=== PATIENT | male | born 1960 | race Hispanic/Latino ===

== ENCOUNTER 2019-02-01 12:28 | Observation (INO) | payer SELFPAY ==
--- NOTE | 2019-02-01 14:17 | RAD REPORT ---
EXAM DESCRIPTION: CT - Abdomen Pelvis Wo Contrast - 02/01/2019 2:01 pm CLINICAL HISTORY: Abdominal pain COMPARISON: None TECHNIQUE: Computed axial tomography of the abdomen and pelvis was obtained. IV and oral contrast we re not requested. All CT scans are performed using dose optimization technique as appropriate and may include automated exposure control or mA/KV adjustment according to patient size. FINDINGS: The evaluation of solid organs, vessels and bowel is limited secondary to the lack of con trast administration. The liver, spleen, pancreas, right adrenal and left kidney appear grossly normal. 1 millimeter calculus right kidney. No hydronephrosis. 12 millimeter left adrenal nodule The appendix is normal. Soft tissue measuring 6 centimeters is present within the distal sigmoid colon. Minimal adjacent stra nding Mild enlargement of the prostate gland IMPRESSION: Soft tissue measuring 6 centimeters within the sigmoid colon may represent a mass or unu sual appearing stool. Direct visualization recommended. Minimal stranding adjacent to the sigmoid col on indicative of mild inflammation. 12 millimeter left adrenal nodule usually representing an adenoma. This could be confirmed with MRI
[2019-02-01 14:22] LABS: Absolute Lymphocytes (CBC) 1.6 K/uL (0.7-4.9); Basophils % 0.3 % (0-1.3); Hematocrit 44.6 % (39.6-49.0); Lymphocytes % 12.3 % (15.3-44.8); RBC Red Blood Cell Count 4.76 M/uL (4.33-5.43)
[2019-02-01] MEDS ORDERED: metroNIDAZOLE 500 MG TABLET ONE (14:33)
[2019-02-01] MEDS ORDERED: CIPROFLOXACIN HCL 500 MG TAB ONE (14:34)
[2019-02-01 14:42] LABS: Albumin 4.3 g/dL (3.4-5.0); Bilirubin Direct 0.2 mg/dL (0-0.2); Bilirubin Total 0.7 mg/dL (0.2-1.0); Potassium 4.4 mmol/L (3.5-5.1); Protein, Total 9.2 g/dL (6.4-8.2)
--- NOTE | 2019-02-01 14:45 | ER ---
Nurse's Notes [facility] Name: Andrés Webb Age: 58 yrs Sex: Male : 1960 Arrival Date: 02/01/2019 Time: 12:34 Bed 18 Private MD: Diagnosis: Colitis;Acute kidney failure Presentation: 02/01 13:00 Presenting complaint: Patient states: Has been having back pain for approx 3 days, had ph blood work done and kidney function abnormal, reports pain in mid back area, N/V and fever. Transition of care: patient was not received from another setting of care. Onset of symptoms was February 01, 2019. Care prior to arrival: None. 13:00 Method Of Arrival: Ambulatory ph 13:00 Acuity: ADONAY 3 ph 18:05 Risk Assessment: Do you want to hurt yourself or someone else? Patient reports no bp desire to harm self or others. Initial Sepsis Screen: Does the patient meet any 2 criteria? No. Patient's initial sepsis screen is negative. Does the patient have a suspected source of infection? No. Patient's initial sepsis screen is negative. Triage Assessment: 13:00 General: Appears in no apparent distress. comfortable, Behavior is calm, cooperative, bp appropriate for age. Pain: Complains of pain in back. EENT: No deficits noted. Neuro: No deficits noted. Cardiovascular: No deficits noted. Respiratory: No deficits noted. GI: No signs and/or symptoms were reported involving the gastrointestinal system. : Reports pain in bilateral flank(s). Derm: No deficits noted. Musculoskeletal: No deficits noted. Historical: - Allergies: 13:04 No Known Allergies; ph - PMHx: 13:04 Diabetes - NIDDM; Hyperlipidemia; Hypertension; ph - PSHx: 13:04 Cholecystectomy; wrist sx; ph - Immunization history:: Adult Immunizations up to date. - Social history:: Smoking status: Patient/guardian denies using tobacco. - Ebola Screening: : No symptoms or risks identified at this time. Screenin:18 Abuse screen: Denies threats or abuse. Denies injuries from another. Nutritional bp screening: No deficits noted. Tuberculosis screening: No symptoms or risk factors identified. Fall Risk None identified. Assessment: 13:17 General: SEE TRIAGE NOTE. bp 13:58 Reassessment: PT TO CT. bp 14:54 Reassessment: ADMIT IN PROCESS FOR ARF AND COLITIS. bp 17:00 Reassessment: ADMIT IN PROCESS, NO BED AVAILABLE. bp 18:00 Reassessment: ATTEMPT TO CALL REPORT, NURSE UNAVAILABLE 2/2 RAPID RESPONSE. bp 18:18 Reassessment: PER HOUSE SUP, ADMIT ON HOLD FOR SHIFT CHANGE. bp 19:15 General: Appears in no apparent distress. comfortable, Behavior is calm, cooperative, rr5 appropriate for age, Reports fever for. 19:15 Pain: Complains of pain in back Pain does not radiate. Pain currently is 4 out of 10 on rr5 a pain scale. Quality of pain is described as aching, Pain began gradually, Is intermittent. Neuro: Level of Consciousness is awake, alert, obeys commands, Oriented to person, place, time, situation, Appropriate for age. Cardiovascular: Capillary refill < 3 seconds Patient's skin is warm and dry. Respiratory: Airway is patent Respiratory effort is even, unlabored, Respiratory pattern is regular, symmetrical. GI: No signs and/or symptoms were reported involving the gastrointestinal system. Reports nausea, vomiting. : Reports pain flank(s). EENT: No signs and/or symptoms were reported regarding the EENT system. Derm: Skin is intact, Skin temperature is warm. Musculoskeletal: Circulation, motion, and sensation intact. Capillary refill < 3 seconds. Vital Signs: 13:02 BP 107 / 63; Pulse 85; Resp 18; Temp 98.8; Pulse Ox 97% on R/A; Weight 102.06 kg; Pain ph 5/10; 14:54 BP 119 / 70; Pulse 73; Resp 16; Pulse Ox 97% ; bp 17:00 BP 119 / 62; Pulse 66; Resp 16; Pulse Ox 100% ; bp 18:05 BP 118 / 78; Pulse 64; Resp 16; Temp 98.5; Pulse Ox 99% ; bp 19:20 BP 121 / 75; Pulse 71; Resp 17; Temp 98.5; Pulse Ox 99% ; rr5 ED Course: 12:34 Patient arrived in ED. mr 13:02 Triage completed. ph 13:04 Arm band placed on. ph 13:15 Francois Rivera, RN is Primary Nurse. bp 13:18 Patient has correct armband on for positive identification. Bed in low position. Call bp light in reach. Side rails up X2. 13:30 Napoleon Koehler PA is PHCP. jr8 13:30 Jama Lu MD is Attending Physician. jr8 14:05 CT Abd/Pelvis - Without Contrast In Process Unspecified. EDMS 14:11 Initial lab(s) drawn, by me, sent to lab. Inserted saline lock: 22 gauge in right jb1 antecubital area, using aseptic technique. Blood collected. 14:44 Bar Ceballos DO is Hospitalizing Provider. jr8 15:37 Rp Exam Complete US In Process Unspecified. EDMS 18:04 No provider procedures requiring assistance completed. Patient admitted, IV remains in bp place. Administered Medications: 14:36 Drug: Flagyl 500 mg Route: PO; bp 15:46 Follow up: Response: No adverse reaction bp 14:37 Drug: Ciprofloxacin 500 mg Route: PO; bp 15:45 Follow up: Response: No adverse reaction bp 14:45 Drug: NS 0.9% 1000 ml Route: IV; Rate: 1000 ml; Site: right antecubital; bp 16:00 Follow up: IV Status: Completed infusion; IV Intake: 1000ml bp 16:00 Drug: NS 0.9% 1000 ml Route: IV; Rate: 1000 ml; Site: right antecubital; bp 19:48 Follow up: Response: No adverse reaction; IV Status: Completed infusion; IV Intake: rr5 1000ml Intake: 16:00 IV: 1000ml; Total: 1000ml. bp 19:48 IV: 1000ml; Total: 2000ml. rr5 Outcome: 14:45 Decision to Hospitalize by Provider. jr8 19:45 Admitted to Tele accompanied by tech, room 401, with chart, Report called to [facility]UNCION rr5 19:45 Condition: stable 19:45 Instructed on the need for admit. 20:13 Patient left the ED. rr5 Signatures: Dispatcher [employer] EDMS Aundrea April Craft mr Napoleon Koehler PA PA jr8 Zuleika Ochoa RN RN Francois Rivera RN RN Sebastián Hurd, RN RN rr5
--- NOTE | 2019-02-01 14:46 | EDPHYS ---
Physician Documentation [facility] Name: Andrés Webb Age: 58 yrs Sex: Male : 1960 Arrival Date: 02/01/2019 Time: 12:34 Bed 18 Private MD: ED Physician Jama Lu HPI: 02/01 14:36 This 58 yrs old Male presents to ER via Ambulatory with complaints of Abnormal jr8 Lab Results. 14:39 The patient presents with pain that is acute, with no known mechanism of injury. The jr8 symptoms are located in the mid back area. Onset: The symptoms/episode began/occurred gradually, 3 day(s) ago. The pain does not radiate. Associated signs and symptoms: Pertinent positives: nausea. The problem was sustained from unknown cause. Modifying factors: The patient symptoms are alleviated by nothing, the patient symptoms are aggravated by nothing. Severity of symptoms: At their worst the symptoms were moderate, in the emergency department the symptoms are unchanged. The patient has not experienced similar symptoms in the past. The patient has been recently seen by a physician:. Patient stated that he went to PCP to have labs done. Had renal insufficiency noted which he has not had before. Has been having mid back pain for 3 days. On ibuprofen. Came to ED for further evaluation . Historical: - Allergies: 13:04 No Known Allergies; ph - PMHx: 13:04 Diabetes - NIDDM; Hyperlipidemia; Hypertension; ph - PSHx: 13:04 Cholecystectomy; wrist sx; ph - Immunization history:: Adult Immunizations up to date. - Social history:: Smoking status: Patient/guardian denies using tobacco. - Ebola Screening: : No symptoms or risks identified at this time. ROS: 14:43 Eyes: Negative for injury, pain, redness, and discharge, ENT: Negative for injury, jr8 pain, and discharge, Neck: Negative for injury, pain, and swelling, Cardiovascular: Negative for chest pain, palpitations, and edema, Respiratory: Negative for shortness of breath, cough, wheezing, and pleuritic chest pain, Abdomen/GI: Negative for abdominal pain, nausea, vomiting, diarrhea, and constipation, MS/Extremity: Negative for injury and deformity, Skin: Negative for injury, rash, and discoloration, Neuro: Negative for headache, weakness, numbness, tingling, and seizure. 14:43 Back: Positive for pain at rest, Negative for pain with movement, radiated pain. Exam: 14:43 Eyes: Pupils equal round and reactive to light, extra-ocular motions intact. Lids and jr8 lashes normal. Conjunctiva and sclera are non-icteric and not injected. Cornea within normal limits. Periorbital areas with no swelling, redness, or edema. ENT: Nares patent. No nasal discharge, no septal abnormalities noted. Tympanic membranes are normal and external auditory canals are clear. Oropharynx with no redness, swelling, or masses, exudates, or evidence of obstruction, uvula midline. Mucous membranes moist. Neck: Trachea midline, no thyromegaly or masses palpated, and no cervical lymphadenopathy. Supple, full range of motion without nuchal rigidity, or vertebral point tenderness. No Meningismus. Cardiovascular: Regular rate and rhythm with a normal S1 and S2. No gallops, murmurs, or rubs. Normal PMI, no JVD. No pulse deficits. Respiratory: Lungs have equal breath sounds bilaterally, clear to auscultation and percussion. No rales, rhonchi or wheezes noted. No increased work of breathing, no retractions or nasal flaring. Abdomen/GI: Soft, non-tender, with normal bowel sounds. No distension or tympany. No guarding or rebound. No evidence of tenderness throughout. Back: No spinal tenderness. No costovertebral tenderness. Full range of motion. Skin: Warm, dry with normal turgor. Normal color with no rashes, no lesions, and no evidence of cellulitis. MS/ Extremity: Pulses equal, no cyanosis. Neurovascular intact. Full, normal range of motion. Neuro: Awake and alert, GCS 15, oriented to person, place, time, and situation. Cranial nerves II-XII grossly intact. Motor strength 5/5 in all extremities. Sensory grossly intact. Cerebellar exam normal. Normal gait. Vital Signs: 13:02 BP 107 / 63; Pulse 85; Resp 18; Temp 98.8; Pulse Ox 97% on R/A; Weight 102.06 kg; Pain ph 5/10; 14:54 BP 119 / 70; Pulse 73; Resp 16; Pulse Ox 97% ; bp 17:00 BP 119 / 62; Pulse 66; Resp 16; Pulse Ox 100% ; bp 18:05 BP 118 / 78; Pulse 64; Resp 16; Temp 98.5; Pulse Ox 99% ; bp 19:20 BP 121 / 75; Pulse 71; Resp 17; Temp 98.5; Pulse Ox 99% ; rr5 MDM: 13:44 Patient medically screened. jr8 14:43 Data reviewed: vital signs, nurses notes, lab test result(s), radiologic studies, CT jr8 scan, and as a result, I will admit patient. Data interpreted: Pulse oximetry: on room air is 97 %. Interpretation: normal. Counseling: I had a detailed discussion with the patient and/or guardian regarding: the historical points, exam findings, and any diagnostic results supporting the discharge/admit diagnosis, lab results, radiology results, the need for further work-up and treatment in the hospital. 02/01 13:45 Order name: Basic Metabolic Panel; Complete Time: 14:51 02/01 13:45 Order name: CBC with Diff; Complete Time: 14:24 02/01 13:45 Order name: Creatinine for Radiology; Complete Time: 14:41 02/01 13:45 Order name: Hepatic Function; Complete Time: 14:51 02/01 13:45 Order name: Lipase; Complete Time: 14:51 02/01 13:45 Order name: CK; Complete Time: 14:51 02/01 13:45 Order name: IV Saline Lock; Complete Time: 14:25 02/01 13:45 Order name: Labs collected and sent; Complete Time: 14:26 02/01 13:45 Order name: CT Abd/Pelvis - Without Contrast; Complete Time: 14:24 02/01 14:44 Order name: Rp Exam Complete US; Complete Time: 15:50 jr Administered Medications: 14:36 Drug: Flagyl 500 mg Route: PO; bp 15:46 Follow up: Response: No adverse reaction bp 14:37 Drug: Ciprofloxacin 500 mg Route: PO; bp 15:45 Follow up: Response: No adverse reaction bp 14:45 Drug: NS 0.9% 1000 ml Route: IV; Rate: 1000 ml; Site: right antecubital; bp 16:00 Follow up: IV Status: Completed infusion; IV Intake: 1000ml bp 16:00 Drug: NS 0.9% 1000 ml Route: IV; Rate: 1000 ml; Site: right antecubital; bp 19:48 Follow up: Response: No adverse reaction; IV Status: Completed infusion; IV Intake: rr5 1000ml Disposition: 02/02 08:14 Co-signature as Attending Physician, Jama Lu MD I agree with the assessment and kdr plan of care. Disposition: 02/01/19 14:45 Hospitalization ordered by Bar Ceballos for Observation. Preliminary diagnosis are Colitis, Acute kidney failure. - Bed requested for Telemetry/MedSurg (observation). - Status is Observation. rr5 - Condition is Stable. - Problem is new. - Symptoms are unchanged. UTI on Admission? No Signatures: Dispatcher [employer] EDMS Jama Lu MD MD [facility] Napoleon Koehler PA PA jr8 Zuleika Ochoa, RN RN ph Jacinda Betancur, RN RN Francois Rivera, RN RN bp Sebastián Mendez, RN RN rr5 Corrections: (The following items were deleted from the chart) 02/01 14:40 14:36 The patient presents with jr8 jr8 15:40 14:45 Hospitalization Ordered by Bar Ceballos DO for Inpatient Admission. Preliminary jr8 diagnosis is Colitis; Acute kidney failure. Bed requested for Telemetry/MedSurg (Inpatient). Status is Inpatient Admission. Condition is Stable. Problem is new. Symptoms are unchanged. UTI on Admission? No. jr8 17:39 15:40 02/01/2019 14:45 Hospitalization Ordered by Bar Ceballos DO for Observation. hb Preliminary diagnosis is Colitis; Acute kidney failure. Bed requested for Telemetry/MedSurg (observation). Status is Observation. Condition is Stable. Problem is new. Symptoms are unchanged. UTI on Admission? No. jr8 20:13 17:39 02/01/2019 14:45 Hospitalization Ordered by Bar Ceballos DO for Observation. rr5 Preliminary diagnosis is Colitis; Acute kidney failure. Bed requested for Telemetry/MedSurg (observation). Status is Observation. Condition is Stable. Problem is new. Symptoms are unchanged. UTI on Admission? No. hb
[2019-02-01] MEDS ORDERED: NA CHLORIDE 0.9% 1,000 ML ONE (14:48)
--- NOTE | 2019-02-01 15:48 | RAD REPORT ---
EXAM DESCRIPTION: US - Renal Ultrasound-Complete - 02/01/2019 3:32 pm CLINICAL HISTORY: Acute renal failure COMPARISON: CT study February 01 FINDINGS: The right kidney measures 10.3 x 5.6 x 5.3 cm. The left kidney measures 11.1 x 5.9 x 4.5 cm. Renal cortical thickness and echogenicity are normal. No hydronephrosis or suspicious renal mass. Punctate echogenic focus lower pole right kidney matches a small nonobstructing calyx calculus on e CT study. Bladder is mostly contracted. No gross abnormality seen. IMPRESSION: No hydronephrosis or suspicious renal mass. No other significant findings.
--- NOTE | 2019-02-01 16:06 | P.HP ---
Certification for Inpatient Patient admitted to: Observation With expected LOS: <2 Midnights Patient will require the following post-hospital care: None Practitioner: I am a practitioner with admitting privileges, knowledge of patient current condition, hospital course, and medical plan of care. Services: Services provided to patient in accordance with Admission requirements found in Title 42 Section 412.3 of the Code of Federal Regulations Patient History Date of Service: 02/01/19 Primary Care Provider: [facility] Reason for admission: Back/left flank pain, Nausea, vomiting and dizziness History of Present Illness: 58-year-old male presented to the emergency room with multiple complaints including back pain with left flank pain, nausea, vomiting and dizziness. Patient with history of diabetes mellitus type 2 non-insulin dependent and hypertension. He works in the area and lives in [place]. 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 He has had poor appetite. Patient reported back/left flank pain since Tuesday. He rated the pain about a 5/10. Today he was dizzy with nausea and vomiting at work. He was seen by the nurse and told to go to the ER for further evaluation. In the ER patient evaluated. White count 13.4, hemoglobin 14.5. Platelet count 323. Sodium 136, potassium 4.4, BUN of 43, creatinine 2.61 with a GFR of 25. Glucose 115. Lipase unremarkable. Urinalysis unremarkable. CT scan revealed soft tissue mass measuring 6.0 cm in the sigmoid region likely mass versus stool. There was some inflammation to the sigmoid region indicating colitis. Renal ultrasound showed no acute abnormality. Patient was given IV fluids in the emergency room. Patient was admitted for observation. When I saw the patient the ER, he appeared comfortable. He did appear dehydrated. Patient has been taking lisinopril and metformin for his medical problems. He also has been taking ibuprofen recently. Patient reports no prior history of renal problems. No history of colitis in the past. He denies any significant melena. He has reported some loose stool and poor appetite. - Past Medical/Surgical History Diabetic: Yes -: Diabetes mellitus type 2, non insulin dependent -: Hypertension -: Cholecystectomy Psychosocial/ Personal History: Patient lives in [place] [facility] [place] but works in the area - Family History Mother -: Heart disease, Hypertension, Diabetes - Social History Smoking Status: Never smoker Alcohol use: No CD- Drugs: No Caffeine use: No Place of Residence: Home Review of Systems General: Weakness, As per HPI Eyes: Unremarkable ENT: Unremarkable Respiratory: Unremarkable Cardiovascular: Light Headedness, As per HPI Gastrointestinal: Nausea, Vomiting, Abdominal Pain, As per HPI Genitourinary: Unremarkable Musculoskeletal: Back Pain, As per HPI Integumentary: Unremarkable Neurological: Unremarkable Lymphatics: Unremarkable Physical Examination - Physical Exam General: Alert, In no apparent distress, Oriented x3, Cooperative HEENT: Atraumatic, Normocephalic, PERRLA, Other (Dry mucous membranes) Neck: Supple, No Thyromegaly Respiratory: Clear to auscultation bilaterally, Normal air movement Cardiovascular: Normal pulses, Regular rate/rhythm Gastrointestinal: Normal bowel sounds, Soft and benign, Non-distended, No tenderness, No masses, No rebound, No guarding Musculoskeletal: No erythema, No tenderness, No warmth Integumentary: No erythema, No warmth, No cyanosis, Tenderness/swelling ( Minimal pain to the left flank region and lower back) Neurological: Normal speech, Normal strength at 5/5 x4 extr, Normal tone, Normal affect - Studies Laboratory Data (last 24 hrs) 02/01/19 14:10: Creatinine 2.61 H 02/01/19 14:10: WBC 13.4 H, Hgb 14.5, Hct 44.6, Plt Count 323 02/01/19 14:10: Sodium 136, Potassium 4.4, BUN 43 H, Creatinine 2.64 H, Glucose 115 H, Total Bilirubin 0.7, AST 19, ALT 29, Alkaline Phosphatase 63, Lipase 235 Assessment and Plan - Plan Impression: Back/left flank pain, nausea and vomiting likely related to sigmoid colitis with noted 6 cm soft tissue mass within the sigmoid colon likely mass versus stool Acute renal injury likely from dehydration with noted dizziness and medication Hypertension Diabetes mellitus type 2, [id number] 12 mm left adrenal nodule likely an adenoma Plan: Back/left flank pain, nausea and vomiting likely related to sigmoid colitis with noted 6 cm soft tissue mass within the sigmoid colon likely mass versus stool: Patient will be admitted for further evaluation and treatment. Sigmoid colitis likely mild. Soft tissue mass likely stool. Will continue with aggressive IV fluid hydration. Will start Cipro and Flagyl. Will monitor electrolytes closely. Will consult surgery to further evaluate. DVT prophylaxis-Lovenox in place. Will provide medication for pain and nausea as needed. Will start with a soft diet and advance as tolerated. Patient will need colonoscopy in 6-8 weeks to further evaluate. Likely discharge within the next 24 hr with clinical improvement. Daytime hospitalist team will continue his care. Acute renal injury likely from dehydration with noted dizziness and medication: Acute renal injury likely related to dehydration and medication. Patient has been taking lisinopril and metformin. Will hold both medications. Will continue with aggressive IV fluid hydration. Will monitor renal function. Renal ultrasound negative. If renal function continues to decline will consult Nephrology. Hypertension: Blood pressure stable this time. Will hold lisinopril due to acute renal injury. Will provide IV hydralazine as needed. Diabetes mellitus type 2, [id number]: Will check A1c. Will provide insulin sliding scale. Will hold metformin due to acute renal injury. 12 mm left adrenal nodule likely an adenoma: This is likely incidental finding. Patient may have MRI of adrenal gland as an outpatient to further assess. Discharge Plan: Home Plan to discharge in: 24 Hours - Advance Directives Does patient have a Living Will: No Does patient have a Durable POA for Healthcare: No - Code Status/Comfort Care Code Status Assessed: Yes (Patient is full code) Time Spent Managing Pts Care (In Minutes): 55
[2019-02-01] MEDS: INSULIN -REGULAR HUMAN 50 UNIT/0.5 ML ML SQ SCH ×2 (20:23→21:00)
[2019-02-01] MEDS ORDERED: TRAMADOL HCL 50 MG TAB PO PRN (20:23)
[2019-02-01] MEDS ORDERED: ACETAMINOPHEN 500 MG TAB PO PRN (20:23)
[2019-02-01] MEDS ORDERED: HYDROCODONE/APAP 7.5/325 MG TAB PO PRN (20:23)
[2019-02-01] MEDS ORDERED: ONDANSETRON 4 MG/2 ML VIAL IV PRN (20:23)
[2019-02-01] MEDS ORDERED: HYDRALAZINE HCL 20 MG/ML VIAL IV PRN (20:23)
[2019-02-01] MEDS: METRONIDAZOLE 500mg IVPB 500 MG/100 ML BAG IV SCH (21:25)
[2019-02-01] MEDS: NACHLORIDE 0.45% 1,000 ML IV SCH (21:25)
[2019-02-01 22:01] LABS: Potassium 4.1 mmol/L (3.5-5.1)
[2019-02-01 22:58] VITALS: O2SAT 97
[2019-02-01] MEDS: Ciprofloxacin 200mg IV 200 MG/100 ML IV.SOLN. IV SCH (23:01)
[2019-02-02 00:11] LABS: Urine Appearance CLEAR; Urine Bilirubin NEGATIVE (NEG); Urine Blood NEGATIVE (NEG); Urine Color YELLOW; Urine Glucose 1+ (NEG); Urine Protein TRACE (NEG); Urine Specific Gravity 1.025 (1.005-1.030); Urine Urobilinogen 0.2 mg/dL (0.2-1.0)
[2019-02-02 00:17] LABS: Urine Microscopic Reflex ORDER UMIC
[2019-02-02] MEDS: METRONIDAZOLE 500mg IVPB 500 MG/100 ML BAG IV SCH ×3 (01:00→17:45)
[2019-02-02 01:33] VITALS: BMI 39.5
[2019-02-02 01:38] LABS: Urine Bacteria <20 /HPF (NONE SEEN); Urine Culture Reflex Order NOT NEEDED; Urine RBC <5 /HPF (NONE SEEN)
[2019-02-02 06:23] LABS: Absolute Lymphocytes (CBC) 1.5 K/uL (0.7-4.9); Basophils % 0.5 % (0-1.3); Hematocrit 36.7 % (39.6-49.0); Lymphocytes % 19.6 % (15.3-44.8); MPV 6.9 fL (7.6-11.3); RBC Red Blood Cell Count 3.95 M/uL (4.33-5.43)
[2019-02-02 06:37] LABS: Magnesium 2.4 mg/dL (1.8-2.4)
[2019-02-02] MEDS: NACHLORIDE 0.45% 1,000 ML IV SCH ×2 (07:03→13:00)
[2019-02-02] MEDS: INSULIN -REGULAR HUMAN 50 UNIT/0.5 ML ML SQ SCH ×3 (07:30→16:30)
[2019-02-02] MEDS ORDERED: PNEUMOCOCCAL VACCINE 0.5 ML IMVAC ONE (08:00)
[2019-02-02] MEDS ORDERED: ENOXAPARIN 40 MG/0.4 ML SQ SCH (09:00)
[2019-02-02] MEDS: Ciprofloxacin 200mg IV 200 MG/100 ML IV.SOLN. IV SCH (09:29)
--- NOTE | 2019-02-02 13:02 | P.CNS ---
Date of Consult: 02/02/19 PC: This 58-year-old male presented emergency room with weakness and backache. HPC: The patient has had pain in left lower portion of his back for the last week. Describes it as severe. Had been taking ibuprofen in order that he was able go to work. However yesterday he was up on his scalp full, to became weak and dizzy, had some nausea and vomiting. He had to be taken off a scaffold. He presents now with its similar complaints for diagnosis and treatment. PMH: Diabetes, hypertension PSHx: Previous cholecystectomy in SOC: Denies any allergies (see medication list) SYS REVIEW: No cough, wheeze, shortness of breath. No chest pain or palpitations. This backache has just been going on for the last while. Denies any urinary complaints. Denies any change in bowel habit or change in appetite. No O/E awake alert comfortable sitting up in a chair HEENT: Within normal limits Chest: Air movement equal bilaterally ABD: Soft nontender no masses are palpable LOCO: Intact DATA: CT scan demonstrates a possible mass effect in the sigmoid colon. H&H are currently stable. Also has a area of concern in the kidney. IMPRESSION: This patient, is not acutely obstructed. He is having normal bowel movements. The CT lesion can be investigated as an outpatient. He will most likely require colonoscopy without biopsy. Pending the results of that then if needed surgery for some interventional procedure could be discussed. PLAN: Patient is tolerating a diet at the moment. Does not require surgical intervention at the moment. Recommend GI consultation as outpatient to further explain the sigmoid lesion.
[2019-02-02 21:37] VITALS: BP 130/70; TEMP 98.7
--- NOTE | 2019-02-03 04:49 | DS ---
Date of Discharge: 02/02/2019 Discharge Diagnoses: 1.Back pain and left flank pain, resolved. 2.Nausea and vomiting, not intractable, resolved. 3.Sigmoid colitis, improving, with antibiotics. 4.Possible 6 cm soft tissue mass versus irregular stool found on CT. The patient needs outpatient c olonoscopy. 5.Acute kidney injury, resolved. 6.Acute dehydration, corrected. 7.Dizziness, resolved. 8.Essential hypertension, stable. 9.Diabetes mellitus type 2 [id number] with hyperglycemia, stable. 10.12 mm left adrenal nodule, likely adenoma. The patient needs MRI of the adrenal gland as an outp atient for further assessment. 11.Obesity. Consultants: Dr. Friedman with GI and Dr. Celestin with General Surgery. Procedures: None. Hospital Course: The patient is a 58-year-old male with past medical history of hypertension and hyp erlipidemia, comes in with back pain, nausea, vomiting, dizziness. The patient appears to have been dehydrated at work. He was found to have a creatinine of 2.64. The patient also had an elevated whi te count and procalcitonin was elevated. Further workup revealed sigmoid colitis on CT scan. He was started on IV antibiotics and IV fluids. His dehydration and dizziness improved. His kidney functi on also improved with IV fluids. His lisinopril and metformin were held due to the acute kidney inju ry. Dr. Celestin with General Surgery was consulted. He did not recommend any surgical intervention at th is time. GI was also consulted. Dr. Friedman recommended outpatient followup in his office for a co lonoscopy once inflammation from the colitis has down and to rule out mass. The patient's CT sc an showed soft tissue measuring 6 cm within the sigmoid colon, may represent a mass or unusual-appear ing stool. Given the patient's history, clinical symptoms and physical exam, likely is stool. The p atient had a colonoscopy 3 years ago in the [place], stated that there was nothing found at that time. The patient understands the importance of following up with GI. He was given an appointment for [address] on Tuesday with Dr. Friedman. Face sheet was faxed over to his office. The patient was provided contact information, location and states that he will follow up with GI. He understands that if he does not have a colonoscopy for visualization of this soft tissue structure and if it is malignant, i t may spread causing metastatic lesion, and possibly even . He has good history of followup, andino s had a colonoscopy previously and is here to get to the bottom of what this may represent on the CT scan. The patient also has a 12 mm left adrenal nodule, which is likely an adenoma. He needs an MRI as an outpatient to further assess this adenoma. The patient's renal ultrasound did not show any hy dronephrosis or suspicious renal mass. The patient is encouraged to keep hydrated, return to work on Tuesday. Condition: Good. Followup: Follow up with Dr. Friedman, GI, on Tuesday at 9 a.m. Follow up with surgeon, Dr. Celestin, in 2 weeks. Return to ER for worsening condition. Establish care with PCP in 1 week. Medications: As per medication reconciliation list. Diet: Diabetic. Activity: As tolerated. Physical Examination: General: Awake, alert, oriented x3. No acute distress. CV: S1, S2. No murmurs. Respiratory: Moving air well bilaterally. Abdomen: Abdomen is soft, nontender, nondistended. Positive bowel sounds. Extremities: No clubbing, cyanosis, or edema. Neurologic: Nonfocal. SA/MODL Voice ID: [id number] Report ID: [id number]
[2019-02-03] MEDS ORDERED: ENOXAPARIN 30 MG/0.3 ML SQ SCH (09:00)
[2019-02-03] MEDS ORDERED: LISINOPRIL 20 MG TAB PO SCH (09:00)
== END 2019-02-02 20:15 | disposition home or self-care (01) ==
LOC: ER 12:28 → ERHOLD 15:42 → 4TH 20:01
PROVIDERS: ADMIT Family Medicine; ATTEND Family Medicine
DX: K52.9 Noninfective gastroenteritis and colitis, unspecified (principal); I10 Essential (primary) hypertension; N17.9 Acute kidney failure, unspecified; E86.0 Dehydration; E78.5 Hyperlipidemia, unspecified; E11.65 Type 2 diabetes mellitus with hyperglycemia; E27.8 Other specified disorders of adrenal gland; E66.9 Obesity, unspecified; Z68.39 Body mass index [BMI] 39.0-39.9, adult; Z23 Encounter for immunization
CPT/HCPCS: 36415; 74176; 76770; 80048; 80076; 81003; 81015; 82550; 82962; 83036; 83605; 83690; 83735; 84145; 85025; 87040; 87205; 90471; 90670; 96360; 96361; 99285; G0378; J0744; J1650; J7030